=== PATIENT | male | born 1945 | race Caucasian/White ===

== ENCOUNTER 2024-05-27 18:22 | Emergency (ER) | payer OTHER, SELFPAY ==
--- NOTE | 2024-05-27 18:23 | ED.GENMED ---
ED Provider Triage
<Dory Booker NP - Last Filed: 05/27/24 18:27>
-
Patient seen by provider in Triage?: Seen in Triage
Attestation: A medical screening examination has been initiated by a qualified medical provider. Based on the assessment performed at this time, it has been determined that an emergent medical condition may exist and the patient has been informed
that further medical evaluation and possible additional diagnostic testing may be needed.
HPI: 78-year-old male here for vomiting and diarrhea. No known sick contacts. Symptoms started 24 hours ago with diarrhea and 12 hours ago with vomiting. Last diarrhea was 2 hours ago. Last emesis was 20 minutes ago. Denies fever but has had
chills. Has epigastric pain, feels like 'a real hard spot at the top of my abdomen.' Had Augmentin for pneumonia last week in March
GENERAL: Alert , in no apparent distress
EYE: No visual abnormalities.
NECK: Trachea midline
ENT: No visible abnormalities.
LUNGS: No acute respiratory distress
NEUROLOGICAL: Alert and oriented
SKIN: Skin intact. No visible changes.
MUSCULOSKELETAL: Moving extremities normally
PSYCH: Normal and appropriate interaction.
This is a medical evaluation conducted in person to initiate diagnostic evaluation and provide initial therapeutics. Please see further documentation by the treating clinician.
History of Present Illness
<Dory Booker PROGRAMMER ANALYST - Last Filed: 05/27/24 18:27>
General
Chief Complaint: Abdominal Symptoms
Time Seen by Provider: 05/27/24 22:47
<Arnulfo Lacey MD - Last Filed: 05/28/24 02:51>
History of Present Illness
History of Present Illness:
Patient is a 78-year-old man presenting to the emergency department with vomiting diarrhea. Patient states that he woke up this morning with countless episodes of vomiting as well as diarrhea. The vomiting is nonbloody. The diarrhea is watery.
He was on Augmentin for pneumonia that he finished about 2 weeks ago. He does state that he has been having congestion rhinorrhea for the past few weeks as well. He did have COVID end of March. No recent sick contacts. No travel. No new
food. He is having some abdominal discomfort.
Past History
<Dory Booker PROGRAMMER ANALYST - Last Filed: 05/27/24 18:27>
Past History
ED Past Medical History: Cancer
ED Past Surgical History: Other
Social History
Tobacco: Non-smoker
Phy Exam
<Arnulfo Lacey MD - Last Filed: 05/28/24 02:51>
Physical Exam
Physical Exam:
GENERAL: in no acute distress
HEENT: normocephalic, extraocular movements intact, dry oral mucosa
NECK: normal inspection
RESPIRATORY: no respiratory distress, clear to auscultation bilaterally
CARDIOVASCULAR: regular rate and rhythm
ABDOMEN/: soft, non-distended, diffusely tender to palp, no rebound or guarding
EXTREMITIES: non-tender, no edema/swelling
NEUROLOGIC: awake and alert, moves all extremities
SKIN: warm
Course
<Dory Booker, PROGRAMMER ANALYST - Last Filed: 05/27/24 18:27>
Orders/Labs/Results
Orders:
Orders
05/27/24 18:28
Ondansetron Orally Disint [Zofran Odt (Orally Disintegrating)] 4 mg PO NOW STA
05/27/24 18:29
Ondansetron Orally Disint [Zofran Odt (Orally Disintegrating)] 4 mg .ROUTE .ST-MED ONE
05/27/24 18:36
Complete Blood Count/With Diff Urgent
Comprehensive Metabolic Panel Urgent
05/27/24 23:02
C DIFF [C difficile Antigen & Toxins] Urgent
HUSSAIN Source: Feces/Stool
Specimen Description:
Norovirus by PCR Urgent
[facility]US[facility]IN Source: Feces/Stool
Specimen Description:
05/27/24 23:09
COVID-19 Antigen Urgent
Source: Nasal Swab
Influenza A+B Rapid Molecular Urgent
HUS[facility]IN Source: Nasal Swab
Specimen Description:
05/28/24 00:30
CT Abd/pelvis W Iv Cont Urgent
Reason For Exam: abdominal pain, vomitting, diarrhea
05/28/24 00:36
Electrocardiogram (*1) Urgent
Reason for Study: Abdominal Pain
EKG- Treatment ONCE
0.9% Sodium Chloride 1000 ml [Nss] 1,000 ml IV BOLUS
Ondansetron Injectable [Zofran] 4 mg IV NOW STA
Abnormal Lab Results
05/27/24
18:36
WBC 11.0 H 10^3/uL
(4.8-10.8)
MCH 31.7 H pg
(27.0-31.0)
Absolute Neuts (auto) 10.1 H 10^3/uL
(1.4-6.5)
Absolute Lymphs (auto) 0.4 L 10^3/uL
(1.2-3.4)
Neutrophils % 91.8 H %
(42.2-75.2)
Lymphocytes % 3.5 L %
(20.5-51.1)
Carbon Dioxide 19 L mmol/L
(22-30)
BUN 39 H mg/dl
(9-20)
Creatinine 1.4 H mg/dL
(0.7-1.3)
Glucose 180 H mg/dl
(70-99)
AST 67 H U/L
(17-59)
05/27/24 18:36
05/27/24 18:36
Vital Signs
Initial and Last Documented VS:
Initial Vital Signs
Temp Pulse Resp Pulse Ox
98.6 F 88 17 99
05/27/24 18:24 05/27/24 18:24 05/27/24 18:24 05/27/24 18:24
Last Documented Vital Signs
Temp Pulse Resp Pulse Ox
98.6 F 88 17 99
05/27/24 18:24 05/27/24 18:24 05/27/24 18:24 05/27/24 18:24
<Arnulfo Lacey MD - Last Filed: 05/28/24 02:51>
Orders/Labs/Results
Orders:
Orders
05/27/24 18:28
Ondansetron Orally Disint [Zofran Odt (Orally Disintegrating)] 4 mg PO NOW STA
05/27/24 18:29
Ondansetron Orally Disint [Zofran Odt (Orally Disintegrating)] 4 mg .ROUTE .STK-MED ONE
05/27/24 18:36
Complete Blood Count/With Diff Urgent
Comprehensive Metabolic Panel Urgent
05/27/24 23:02
C DIFF [C difficile Antigen & Toxins] Urgent
HUSSAIN Source: Feces/Stool
Specimen Description:
Norovirus by PCR Urgent
[facility]US[facility]IN Source: Feces/Stool
Specimen Description:
05/27/24 23:09
COVID-19 Antigen Urgent
Source: Nasal Swab
Influenza A+B Rapid Molecular Urgent
HUSSAIN Source: Nasal Swab
Specimen Description:
05/28/24 00:30
CT Abd/pelvis W Iv Cont Urgent
Reason For Exam: abdominal pain, vomitting, diarrhea
05/28/24 00:36
Electrocardiogram (*1) Urgent
Reason for Study: Abdominal Pain
EKG- Treatment ONCE
0.9% Sodium Chloride 1000 ml [Nss] 1,000 ml IV BOLUS
Ondansetron Injectable [Zofran] 4 mg IV NOW STA
Abnormal Lab Results
05/27/24
18:36
WBC 11.0 H 10^3/uL
(4.8-10.8)
MCH 31.7 H pg
(27.0-31.0)
Absolute Neuts (auto) 10.1 H 10^3/uL
(1.4-6.5)
Absolute Lymphs (auto) 0.4 L 10^3/uL
(1.2-3.4)
Neutrophils % 91.8 H %
(42.2-75.2)
Lymphocytes % 3.5 L %
(20.5-51.1)
Carbon Dioxide 19 L mmol/L
(22-30)
BUN 39 H mg/dl
(9-20)
Creatinine 1.4 H mg/dL
(0.7-1.3)
Glucose 180 H mg/dl
(70-99)
AST 67 H U/L
(17-59)
05/27/24 18:36
05/27/24 18:36
Vital Signs
Initial and Last Documented VS:
Initial Vital Signs
Temp Pulse Resp Pulse Ox
98.6 F 88 17 99
05/27/24 18:24 05/27/24 18:24 05/27/24 18:24 05/27/24 18:24
Last Documented Vital Signs
Temp Pulse Resp Pulse Ox
98.6 F 88 17 99
05/27/24 18:24 05/27/24 18:24 05/27/24 18:24 05/27/24 18:24
<Arnulfo Lacey MD - Last Filed: 05/28/24 02:51>
MDM/Problems Addressed
Differential Diagnosis Includes:
78-year-old man presenting to the Emergency Department 1 day of vomiting diarrhea. Vitals are unremarkable and exam does show dry oral mucosa with diffuse abdominal tenderness. Concern for gastroenteritis versus C. difficile given the antibiotic
versus metabolic derangement. Will obtain blood work CT scan. Patient is interested in trialing p.o. will trial it before initiating IV fluids.
<Arnulfo Lacey MD - Last Filed: 05/28/24 02:51>
*Critical Care Note
Total Time (30-74mins, 75-104mins- exclusive of procedures): Not Applicable
<Arnulfo Lacey MD - Last Filed: 05/28/24 02:51>
Update Note
Update Note:
Unfortunately patient did not tolerate p.o. Will give IV fluids and IV Zofran.
CT scan preliminary report is consistent with enteritis. He does have hypodense lesions throughout the liver not well-characterized. Updated patient to follow-up outpatient.
On reevaluation patient resting comfortably. He did trial p.o. and was successful. Will discharge at this time with short course of Zofran
ED Attending Note
<Dory Booker NP - Last Filed: 05/27/24 18:27>
-
Portions of this chart may have been created with voice recognition software.� Occasional wrong word or��sound alike� substitutions may have occurred due to the inherent limitations of voice recognition software.
Discharge Plan
Departure
Patient Disposition: Home (Routine Discharge)
Date of Disposition: 05/28/24
Time of Disposition: 02:49
Patient with high blood pressure during this ER visit?: No
Discharge Problem:
Gastroenteritis
Instructions: Nausea and Vomiting, Adult (DC)
Prescriptions:
New
ondansetron 4 mg tablet,disintegrating
4 mg PO Q6H PRN (Reason: nausea and vomiting) Qty: 4 0RF
Referrals:
Sudheer Coronado IV, DO [Family Provider] -
Activity Restrictions/Additional Instructions:
You have been evaluated in the Emergency Department today for nausea and vomiting and diarrhea. Your evaluation suggests that your symptoms are most likely due to viral illness which will improve on its own with rest and fluids. Remember to drink
plenty of fluids at home. I did prescribe you Zofran to help with any nausea/vomitting.
Please follow up with your primary care physician within two days.
Return to the Emergency Department if you experience worsening or uncontrolled pain, inability to tolerate fluids by mouth, difficulty breathing, fevers 100.4�F or greater, recurrent vomiting, or any other concerning symptoms.
Thank you for choosing us for your care.
When a patient comes into the Emergency Department, many diagnostic studies such as x-rays & CT Scans are completed to identify injuries. During these diagnostic studies, there are sometimes things like cysts, nodules, tumors, etc. that are
'incidentally found' and seen on these studies. No further workup was required during your hospitalization for your incidental findings, but please follow-up with your Primary Care Physician/Specialist regarding the below incidental findings. Your
Primary Care Physician/Specialist will instruct you/guide you through any further workup.
Your incidental findings:
Multiple hypodense lesions throughout the liver.
Interventions
Interventions:
*Risk Screen - Suicide Last Done: 05/27/24 18:28
*General Assessment Last Done: 05/27/24 18:28
*Neglect/Abuse Screening Last Done: 05/27/24 18:28
ED- Fall Risk Assessment Last Done: 05/28/24 01:00
*ED COVID-19 Vaccine History Last Done: 05/27/24 18:28
HE-Dcyret-Scsprmjzro Assessment Last Done: 05/28/24 02:36
Discharge Date and Time
Print Language: YAKUT
[2024-05-27] MEDS: ZOFRAN ODT (ORALLY DISINTEGRATING) 4 MG PO (18:31)
[2024-05-27 18:50] LABS: % Basophils 0.2 % (0-2); % Eosinophils 0.1 % (0-6); % Immature Granulocytes 0.4 % (0-0.5); % Lymphocytes 3.5 % (20.5-51.1); % Neutrophils 91.8 % (42.2-75.2); Absolute Lymphocytes 0.4 10^3/uL (1.2-3.4); Absolute Monocytes 0.4 10^3/uL (0.1-0.6); Absolute Neutrophils 10.1 10^3/uL (1.4-6.5); Hematocrit 43.1 % (39.0-52.0); Hemoglobin 15.1 g/dL (13.0-18.0); Mean Corpuscular Hgb 31.7 pg (27.0-31.0); Mean Corpuscular Volume 90.5 fL (80.0-94.0); Mean Platelet Volume 9.3 fL (7.4-10.4); Nucleated Red Blood Cells % 0 % (-); Platelet Count 187 10^3/uL (130-400); Red Blood Cell Count 4.76 10^6/uL (4.70-6.10); Red Cell Dist. Width 12.9 % (11.5-14.5)
[2024-05-27 19:04] LABS: ALT (SGPT) 47 U/L (0-50); AST (SGOT) 67 U/L (17-59); Albumin 4.8 g/dl (3.5-5.0); Alkaline Phosphatase 67 U/L (38-126); Blood Urea Nitrogen 39 mg/dl (9-20); Carbon Dioxide 19 mmol/L (22-30); Chloride 105 mmol/L (98-107); Glucose 180 mg/dl (70-99); Potassium 4.2 mmol/L (3.5-5.1); Sodium 140 mmol/L (135-145); Total Bilirubin 0.8 mg/dl (0.2-1.3); Total Protein 7.5 g/dl (6.3-8.2); eGFR 52.09
[2024-05-27 23:36] LABS: COVID-19 Antigen Negative (Negative)
[2024-05-28] VITALS: BP 135/72
[2024-05-28] MEDS: ZOFRAN 4 MG IV (01:30)
[2024-05-28] MEDS: NSS 1000 IV (01:30)
[2024-05-28 02:00] VITALS: BP 125/56
[2024-05-28 02:52] VITALS: BP 135/70
[2024-05-28 03:03] VITALS: BP 135/70
== END 2024-05-28 03:05 | disposition home or self-care (01) ==
LOC: EMR 18:22
PROVIDERS: Registered Nurse; EMERGENCY PHYSICIAN Student in an Organized Health Care Education/Training Program; FAMILY PHYSICIAN Family Medicine
DX: K52.9 Noninfective gastroenteritis and colitis, unspecified (principal)
CPT/HCPCS: 99284; 96374; 74177; 80053; 85025; 87502; 87811; 93005; Q9967